=== PATIENT | female | born 1975 | race Caucasian/White ===

== ENCOUNTER 2020-03-10 20:35 | Emergency (ER) | payer OTHER, SELFPAY ==
[2020-03-10 20:38] VITALS: BP 138/76; PULSE 87; RESP 20; TEMP 36.6; O2SAT 100
--- NOTE | 2020-03-10 22:26 | ED.SKABFB ---
HPI - Skin/Abscess/Foreign Bdy General Chief complaint: Skin/Abscess/Foreign Body Stated complaint: possible bug in ear Time Seen by Provider: 03/10/20 20:56 Source: patient Mode of arrival: ambulatory Limitations: no limitations History of Present Illness HPI narrative: This is a 44 year old female that presents to the ER for possible bug in her ear. Reports 2 days ago she was outside and thought that she felt a bug fly into her ear. Reports since she had had pain and feels like she hears a crackling noise. Also reports sore throat that started today. Denies fever, drainage from the ear, or difficulty swallowing. Related Data Home Medications Medication Instructions Recorded Confirmed No Home Medications 09/08/19 09/08/19 Allergies Allergy/AdvReac Type Severity Reaction Status Date / Time No Known Allergies Allergy Verified 03/10/20 20:41 Review of Systems Review of Systems: Narrative: CONSTITUTIONAL: Denies fever ENT: Reports sore throat, and otalgia. All systems reviewed & are unremarkable except as noted in HPI and below PMFSH Past Medical History Medical History (Updated 03/10/20 @ 23:19 by Taina Hilton PA-C) History of hypothyroidism Family History Family History (Updated 06/14/17 @ 09:14 by DOCTOR UNKNOWN) Father Diabetes mellitus Hypertension Family history of chronic obstructive pulmonary disease Social History Social History Smoking status: Never smoker Alcohol intake: current Exam Narrative: Exam Narrative: GENERAL: Well-appearing, well-nourished, and in no acute distress. HEAD: Normocephalic, atraumatic. EYES: EOMI. ENT: Nares clear, no rhinorrhea or epistaxis. Mucous membranes moist. Oropharynx without tonsillar hypertrophy, exudate or other lesions. Bilateral external auditory canals are normal. No foreign bodies noted. Bilateral TMs pearly garay non-bulging EXTREMITIES: Normal range of motion. No edema. SKIN: Warm, dry, no rash. NEURO: No focal deficits. Alert and oriented x3. PSYCH: Normal mood and affect Course Vital Signs Vital signs: Vital Signs Temperature 97.9 F 03/10/20 20:38 Pulse Rate 87 03/10/20 20:38 Respiratory Rate 20 03/10/20 20:38 Blood Pressure 138/76 03/10/20 20:38 Pulse Oximetry 100 03/10/20 20:38 Temperature 97.9 F 03/10/20 20:38 Pulse Rate 87 03/10/20 20:38 Respiratory Rate 20 03/10/20 20:38 Blood Pressure 138/76 03/10/20 20:38 Pulse Oximetry 100 03/10/20 20:38 MDM - Skin/Abscess/Foreign Bdy MDM Narrative Medical decision making narrative: Patient presents to the emergency department for possible bug in her ear. No foreign body noted in the ear. The external auditory canal and TM are normal. Patient also reports a sore throat. Strep screen is negative. Patient was instructed on care of viral pharyngitis. Patient is to follow-up with her primary care doctor Lab Data Attestation: I reviewed the patient's lab results. Labs: Strep Screen Presumptive Negative *(Reference Range: Negative)* Critical Care Time Critical Care Time Critical Care Time: No Discharge Plan Discharge Clinical Impression: Pharyngitis Qualifiers: Pharyngitis/tonsillitis etiology: unspecified etiology Qualified Code(s): J02.9 - Acute pharyngitis, unspecified Patient Disposition: Home, Self-Care Condition: Stable Instructions: Pharyngitis (ED) Additional Instructions: Return to the emergency department if you experience fever, drainage from your ear, difficulty swallowing, or any other symptoms that are concerning to you Tylenol or ibuprofen as needed for pain. Chloraseptic spray or lozenges as needed for sore throat Follow-up with your primary care doctor Prescriptions: No Action No Home Medications RF: 0 cyclobenzaprine 10 mg tablet 10 mg PO TID PRN (Reason: muscle spasm) Qty: 20 RF: 0 Follow-up/Referrals: UNKNOWN,DOCTOR [Primary Care Provider]
== END 2020-03-10 23:37 | disposition home or self-care (01) ==
PROVIDERS: Emergency Provider Emergency Medicine; PCP Physician Assistant
DX: J02.9 Acute pharyngitis, unspecified (principal)
CPT/HCPCS: 87081; 87880; 99283

== ENCOUNTER 2020-03-17 15:33 | Emergency (ER) | payer OTHER, SELFPAY ==
[2020-03-17 15:47] VITALS: BP 150/88; PULSE 81; RESP 16; TEMP 37.1; O2SAT 100
--- NOTE | 2020-03-17 15:49 | ED.EAR ---
HPI - Ear Problem General Chief complaint: Ear Stated complaint: insect in ear Time Seen by Provider: 03/17/20 15:49 Source: patient and RN notes reviewed History of Present Illness HPI Narrative: Patient is a 44-year-old female who presents the urgent care with complaints of a possible bug in the left ear. Patient was seen in the emergency room on the and it was noted that there was no foreign body in the ear. They also did a strep swab on the patient, which was negative. Patient then called her PCP and was placed on Augmentin last Tuesday. Patient spoke to her PCP again today explaining that the pain was still there, and has mild radiation down the neck, and she was suggested to follow-up at the urgent care. Patient denies putting anything in the ear. Denies of any fever, nausea, vomiting. No other acute complaints. No acute distress noted. Patient aware of the plan of care. Related Data Home Medications Medication Instructions Recorded Confirmed levothyroxine 175 mcg PO DAILY 03/17/20 03/17/20 Allergies Allergy/AdvReac Type Severity Reaction Status Date / Time ethinyl estradiol Allergy Rash Verified 03/17/20 15:51 [From Herber (28)] levonorgestrel Allergy Rash Verified 03/17/20 15:51 [From Herber (28)] Review of Systems Review of Systems: Narrative: CONSTITUTIONAL: Denies fever, chills, or sweats. EYES: Denies visual changes, redness, or discharge. ENT: Reports of left ear pain radiating to the neck and throat; reports of possible foreign body to the left ear CARDIOVASCULAR: Denies chest pain, palpitations, or edema. RESPIRATORY: Denies cough or dyspnea. GASTROINTESTINAL: Denies abdominal pain, nausea, vomiting, or diarrhea. GENITOURINARY: Denies dysuria or hematuria. SKIN: Denies rash or itching. MUSCULOSKELETAL: Denies back pain, joint pain, or myalgia. NEUROLOGIC: Denies headache, numbness, or weakness. All other systems reviewed are negative, except as documented in HPI. [facility] Past Medical History Medical History (Updated 03/17/20 @ 15:58 by CLAUDIA Chery) History of hypothyroidism Family History Family History (Updated 06/14/17 @ 09:14 by DOCTOR UNKNOWN) Father Diabetes mellitus Hypertension Family history of chronic obstructive pulmonary disease Social History Social History Smoking status: Never smoker Alcohol intake: current Comments At the time of my signature, I reviewed and agree with the nursing past medical, surgical, social, and family history. There is no relevant family history pertinent to the patient complaint. Exam Narrative: Exam Narrative: GENERAL: This is a well-nourished, well-developed patient, in no apparent distress. HEAD: normocephalic, atraumatic. EYES: PERRL. Sclera clear/white. Vision is grossly intact. EARS: External ears normal, auditory canals clear and without drainage, TMs normal without perforation. Mild fluid noted behind the left TM without otitis. Hearing grossly intact. NOSE: External nose normal with no obvious nasal discharge, nares without redness, no rhinorrhea. THROAT: Mucous membranes moist, posterior pharynx clear. NECK: Neck supple, non-tender without lymphadenopathy, masses or thyromegaly. No palpable nodules or goiter SKIN: warm, intact with no suspicious lesions or rash, good texture and turgor. NEURO: awake, alert, and oriented to person, place and time. There were no obvious focal neurologic abnormalities. EXTREMITIES: No clubbing, cyanosis, or edema. Course Vital Signs Vital signs: Vital Signs Temperature 98.8 F 03/17/20 15:47 Pulse Rate 81 03/17/20 15:47 Respiratory Rate 16 03/17/20 15:47 Blood Pressure 150/88 H 03/17/20 15:47 Pulse Oximetry 100 03/17/20 15:47 Temperature 98.8 F 03/17/20 15:47 Pulse Rate 81 03/17/20 15:47 Respiratory Rate 16 03/17/20 15:47 Blood Pressure 150/88 H 03/17/20 15:47 Pulse Oximetry 100 03/17/20 15:47 Reviewed?patient is informed lonny
== END 2020-03-17 16:02 | disposition home or self-care (01) ==
PROVIDERS: Emergency Provider Nurse Practitioner Family; PCP Family Medicine
DX: H92.02 Otalgia, left ear (principal)
CPT/HCPCS: 99211; G0463

== ENCOUNTER 2021-02-16 17:11 | Emergency (ER) | payer OTHER, SELFPAY ==
[2021-02-16 17:17] VITALS: BP 134/81; PULSE 85; RESP 16; TEMP 36.3; O2SAT 100
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
== END 2021-02-16 17:44 | disposition home or self-care (01) ==
PROVIDERS: Emergency Provider Nurse Practitioner; PCP Family Medicine
DX: N30.01 Acute cystitis with hematuria (principal); E03.9 Hypothyroidism, unspecified
CPT/HCPCS: 81003; 87077; 87086; 87088; 87186; 99213; G0463

== ENCOUNTER 2021-06-11 12:00 | Emergency (ER) | payer OTHER, SELFPAY ==
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
--- NOTE | ~2021-06-11 | XR_ITS ---
EXAMINATION: XR wrist RT min 3V DATE: 06/11/2021 12:59 INDICATION: Radial sided right wrist pain. TECHNIQUE: 4 views of right wrist were obtained. COMPARISON: None. FINDINGS: Bone alignment is normal. No fracture. There is a 9 mm nonaggressive lytic lesion in scapho id. There is mild osteoarthritis of first metacarpophalangeal joint. IMPRESSION: 1. Mild osteoarthritis of first metacarpophalangeal joint. 2. 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 Reviewed, dictated and finalized at location A.
--- NOTE | ~2021-06-11 | XR_ITS ---
EXAMINATION: XR cervical spine 4-5V DATE: 06/11/2021 13:00 INDICATION: Neck injury. Neck pain radiating to the right arm. TECHNIQUE: 6 views of cervical spine were obtained. COMPARISON: None. FINDINGS: There is 6 degrees dextrocurvature of cervicothoracic spine. Vertebral body heights and int ervertebral disc heights are normal. The facet joints and uncovertebral joints are unremarkable. No c entral canal stenosis or prevertebral soft tissue swelling. IMPRESSION: 1. No fracture. Reviewed, dictated and finalized at location A. IMPRESSION: 1. No fracture.
[2021-06-11 12:13] VITALS: BP 148/87; PULSE 82; RESP 20; TEMP 37; O2SAT 100
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
== END 2021-06-11 14:39 | disposition home or self-care (01) ==
PROVIDERS: Emergency Provider Nurse Practitioner; PCP Family Medicine
DX: S63.501A Unspecified sprain of right wrist, initial encounter (principal); S66.911A Strain of unspecified muscle, fascia and tendon at wrist and hand level, right hand, initial encounter; S13.9XXA Sprain of joints and ligaments of unspecified parts of neck, initial encounter; Y04.0XXA Assault by unarmed brawl or fight, initial encounter; E03.9 Hypothyroidism, unspecified
CPT/HCPCS: 72050; 73110; 73130; 99214; G0463

== ENCOUNTER 2021-08-31 16:42 | Emergency (ER) | payer OTHER, SELFPAY ==
[2021-08-31 16:51] VITALS: BP 154/85; PULSE 76; RESP 16; TEMP 36.8; O2SAT 99
--- NOTE | 2021-08-31 18:30 | ED.GENADULT ---
HPI - General Adult General Chief complaint: Unspecified Stated complaint: Ear Pain,Finger pain Time Seen by Provider: 08/31/21 18:31 Source: patient, RN notes reviewed and old records reviewed Mode of arrival: ambulatory Limitations: no limitations History of Present Illness HPI narrative: 46 year old female who [facility] with complaints of left ear pain and pressure, cough and sore throat and nasal drainage for the past several days. She also states complaint of some tenderness to her right 4th finger medial dorsal aspect where she thinks she may of gotten something in it while renovating at home because area remains tender. Patient has callus area noted to 4th dorsal medial finger area with no redness noted. Patient voices some tenderness to area on finger. Patient states that she has been taking some Ibuprofen for her symptoms. Related Data Home Medications Medication Instructions Recorded Confirmed etonogestrel-ethinyl estradiol 1 vag ring VAGINAL WEEKLY 08/31/21 08/31/21 [EluRyng] fluoxetine 40 mg PO DAILY 08/31/21 08/31/21 fluticasone propionate 2 spray INTRANASAL DAILY 08/31/21 08/31/21 levothyroxine 150 mcg PO DAILY 08/31/21 08/31/21 montelukast 10 mg PO DAILY 08/31/21 08/31/21 trazodone 50 mg PO DAILY 08/31/21 08/31/21 Allergies Allergy/AdvReac Type Severity Reaction Status Date / Time ethinyl estradiol Allergy Rash Verified 08/31/21 18:35 [From Herber (28)] levonorgestrel Allergy Rash Verified 08/31/21 18:35 [From Herber (28)] Review of Systems Review of Systems: CONSTITUTIONAL: Denies fever, chills, or sweats. EYES: Denies visual changes, redness, or discharge. ENT:Positive for rhinorrhea, congestion, sore throat, left otalgia. CARDIOVASCULAR: Denies chest pain, palpitations, or edema. RESPIRATORY: Positive cough denies dyspnea. GASTROINTESTINAL: Denies abdominal pain, nausea, vomiting, or diarrhea. GENITOURINARY: Denies dysuria or hematuria. SKIN: Denies rash or itching.tender callus area o right dorsal medial 4th finger MUSCULOSKELETAL: Denies back pain, joint pain, or myalgia. NEUROLOGIC: Denies headache, numbness, or weakness. PSYCHIATRIC: Denies anxiety or depression. All systems reviewed & are unremarkable except as noted in HPI and below PMFSH Past Medical History Medical History (Updated 09/02/21 @ 20:14 by Winifred Wakefield NP) Depression History of hypothyroidism PCOS (polycystic ovarian syndrome) Surgical History Surgical History (Updated 09/02/21 @ 17:24 by Winifred Wakefield NP) History of cholecystectomy Family History Family History (Updated 09/02/21 @ 20:09 by Winifred Wakefield NP) Father Diabetes mellitus Hypertension Family history of chronic obstructive pulmonary disease Aortic valve disorder Mother Aortic valve disorder Hypertension Social History Social History (Updated 09/02/21 @ 20:01 by Winifred Wakefield NP) Smoking status: Never smoker Alcohol intake: current Substance use: never Living arrangements: with family Gender identity (if verbalized by the patient): Female Comments At time of signature, agree with nursing past medical, surgical, social and family history. There is no relevant family history pertinent to the presenting complaint Exam Narrative: GENERAL: Well-appearing, well-nourished, and in no acute distress. HEAD: Normocephalic, atraumatic. EYES: PERRLA and EOMI. ENT: Nares patent,clear rhinorrhea no epistaxis. Mucous membranes moist.Right TM normal wit good light reflex, left TM red and bulging no drainage noted. throat with mild redness, no exudates or lesions no tonsil swelling post nasal drainage noted. NECK: Supple.no lymphadenopathy CHEST: Clear to auscultation. No respiratory distress.SAO2 99% on room air, no dyspnea or tachypnea noted. HEART: Regular rate and rhythm. No murmur heard. Normal peripheral pulses. ABDOMEN: Soft, nontender, nondistended, normal active bowel sounds. EXTREMITIES: Normal
== END 2021-08-31 18:55 | disposition home or self-care (01) ==
PROVIDERS: Emergency Provider Registered Nurse
DX: H65.02 Acute serous otitis media, left ear (principal); L84 Corns and callosities; E03.9 Hypothyroidism, unspecified; E28.2 Polycystic ovarian syndrome; F32.A Depression, unspecified
CPT/HCPCS: 99213; G0463

== ENCOUNTER 2021-09-15 11:06 | Emergency (ER) | payer OTHER, SELFPAY ==
[2021-09-15 11:54] VITALS: BP 149/81; PULSE 71; RESP 16; TEMP 36.9; O2SAT 98
--- NOTE | 2021-09-15 12:20 | PC.NURSE ---
PT LEAVING ED TO GO TO URGENT [facility]ARE [facility]. AMBULATORY WITH STEADY GAIT.
== END 2021-09-16 01:51 | disposition left against medical advice (07) ==
DX: R51.9 Headache, unspecified (principal)
CPT/HCPCS: 99199

== ENCOUNTER → 2021-11-04 01:21 | Outpatient (CLI) | payer OTHER, SELFPAY ==
[2021-11-04 21:10] LABS: SARS-CoV-2 RNA PCR Negative
== END ==
PROVIDERS: Visit Provider Internal Medicine Gastroenterology
DX: B34.9 Viral infection, unspecified (principal); Z20.822 Contact with and (suspected) exposure to COVID-19
CPT/HCPCS: C9803; U0003; U0005

== ENCOUNTER 2021-11-16 10:36 | Outpatient (CLI) | payer OTHER, SELFPAY ==
--- NOTE | ~2021-11-16 | MR_ITS ---
EXAMINATION: MR shoulder RT wo con DATE: 11/16/2021 11:54 INDICATION: Right shoulder pain. TECHNIQUE: Magnetic resonance imaging (MRI) of the right shoulder was performed without intravenous c ontrast. Sequences included axial PD-weighted FS FSE, coronal oblique PD-weighted FS FSE and T2-weigh lucila FS FSE, and sagittal oblique T2-weighted FS FSE and T1-weighted FSE. COMPARISON: None. FINDINGS: Coracoacromial arch: The acromion undersurface is flat in morphology (type I). There is moderate acromioclavicular joint o steoarthritis including inferiorly directed osteophytes. There is mild subacromial/subdeltoid bursiti s. Rotator cuff: There is moderate tendinopathy of the conjoined portion of supraspinatus and infraspinatus tendons. T eres minor tendon is normal. There is mild subscapularis tendinopathy. No tear. Biceps tendon and glenoid labrum: Biceps tendon is in bicipital groove. There is mild intra-articular biceps tendinopathy. There is a t ear of the glenoid labrum to from 11:00 to 12:00 (SLAP tear) with 4 mm paralabral cyst. Fluid: There is a small glenohumeral joint effusion. Bones/cartilage: Glenoid cartilage is normal. Humeral head cartilage is normal. IMPRESSION: 1. Moderate rotator cuff tendinopathy. No tear. 2. SLAP tear with 4 mm paralabral cyst. 3. Moderate acromioclavicular joint osteoarthritis. 4. Small glenohumeral joint effusion. 5. Mild intra-articular biceps tendinopathy. Reviewed, dictated and finalized at location A. [facility]
== END 2021-11-16 10:37 | disposition home or self-care (01) ==
LOC: ANHIMG 10:41
PROVIDERS: PCP Physician Assistant; Visit Provider Physician Assistant Surgical
DX: M25.511 Pain in right shoulder (principal); M76.891 Other specified enthesopathies of right lower limb, excluding foot; S43.431A Superior glenoid labrum lesion of right shoulder, initial encounter; M19.011 Primary osteoarthritis, right shoulder; M25.411 Effusion, right shoulder
CPT/HCPCS: 73221

== ENCOUNTER 2024-02-06 17:15 | Emergency (ER) | payer OTHER, SELFPAY ==
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
[2024-02-06 17:52] VITALS: BP 146/87; PULSE 71; RESP 18; TEMP 36.4; O2SAT 99
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
[2024-02-06] MEDS: ACETAMINOPHEN 500 MG TABLET 1000 MG PO (20:15)
[2024-02-06] MEDS: ONDANSETRON HCL ODT 4 MG TABLET PO (20:15)
[2024-02-06 20:23] VITALS: BP 138/86; PULSE 71; RESP 15; O2SAT 99
== END 2024-02-06 21:09 | disposition home or self-care (01) ==
PROVIDERS: Emergency Provider Emergency Medicine; PCP Physician Assistant
DX: S16.1XXA Strain of muscle, fascia and tendon at neck level, initial encounter (principal); F32.A Depression, unspecified; E03.9 Hypothyroidism, unspecified; E28.2 Polycystic ovarian syndrome; V59.50XA Passenger in pick-up truck or van injured in collision with unspecified motor vehicles in traffic accident, initial encounter
CPT/HCPCS: 70450; 73030; 99284; A9270

== ENCOUNTER 2024-02-08 17:14 | Emergency (ER) | payer OTHER, SELFPAY ==
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
[2024-02-08 17:16] VITALS: BP 136/74; PULSE 104; RESP 16; TEMP 36.4; O2SAT 98
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
[2024-02-08] MEDS: ACETAMINOPHEN 500 MG TABLET 1000 MG PO (22:52)
[2024-02-08] MEDS: diphenhydrAMINE HCl INJ 50 MG/ML VIAL 25 MG IV PUSH (22:54)
[2024-02-08] MEDS: PROCHLORPERAZINE EDISYLATE 10 MG/2 ML VIAL IV PUSH (22:54)
[2024-02-08 23:03] LABS: Hemoglobin 14.8 g/dL (12.0-15.0); Immature Platelet Fraction Pct 2.6 % (0.9-11.2); Mean Corpuscular HGB Conc 34.4 g/dl (32-36); Mean Corpuscular Hemoglobin 31.4 pg (26-34); Mean Corpuscular Volume 91.3 fl (80-100); Mean Platelet Volume 9.6 fl (7.4-10.4); Platelet Count Result 240 k/mm3 (150-375); Red Blood Count 4.71 M/mm3 (4.2-5.4); Red Cell Distribution Width 12.8 % (11.5-14.5); White Blood Count 11.8 K/mm3 (4.5-10.0)
[2024-02-08 23:14] LABS: Anion Gap 9 mmol/L (4-12); Blood Urea Nitrogen 18 mg/dL (7-17); Calcium 9.1 mg/dL (8.4-10.2); Carbon Dioxide 25 mmol/L (22-30); Chloride 103 mmol/L (98-107); Estimated CRCL calculation 93 ml/min; Estimated Glomerular Filt Rate > 60; Glucose 136 mg/dL (65-110); Potassium 4.5 mmol/L (3.4-5.0); Sodium 137 mmol/L (137-145)
[2024-02-09 00:04] LABS: Band Neutrophils Percent 7 % (0-6); Lymphocytes Absolute Manual 0.11 K/mm3 (1.1-4.5); Monocytes Absolute Manual 0.11 K/mm3 (0.1-0.90); Monocytes Percent Manual 1 % (3-9); Neutrophils Absolute Manual 11.56 K/mm3 (1.7-7.2); Neutrophils Percent Manual 91 % (46-73); Platelet Estimate Adequate (Adequate); Schistocytes None Seen; Total Cells Counted 100
--- NOTE | 2024-02-09 00:11 | PC.NURSE ---
Pt had a bowel movement she couldnt control on her clothing and her bedding. Pt given blue scrub pants and linens changed.
--- NOTE | 2024-02-09 00:11 | PC.NURSE ---
Post void residual 115ml. Pt stated I dont feel like I have to pee. I have no urge at all.
[2024-02-09] MEDS: SODIUM CHLORIDE 0.9% IV 1,000 ML 999 ML IV CONT (00:18)
[2024-02-09 02:35] LABS: Appearance Urine Clear (Clear); Bacteria Urine None Seen /hpf; Bilirubin Urine Negative (Negative); Blood Urine Negative (Negative); Color Urine Yellow (Yellow); Glucose Urine UA Negative (Negative); Ketones Urine Negative (Negative); Leukocyte Esterase Ur Negative LEU/UL (Negative); Need Manual Microscopic Reviewed; Nitrate Urine Negative (Negative); Protein Urine Trace mg/dL (Negative); Squamous Epithelial Cell Urine Occasional /hpf (Few); Urobilinogen Urine 0.2 mg/dL (<2.0); WBC Urine 0-5 /hpf (0-3); pH Urine 5.5 (5.0-9.0)
[2024-02-09 02:45] LABS: Specific Grav Ur 1.036 (1.001-1.035)
[2024-02-09 02:46] LABS: Add Urine Microscopic? YES
[2024-02-09 03:28] VITALS: BP 148/76; PULSE 76; RESP 16; O2SAT 98
== END 2024-02-09 03:29 | disposition home or self-care (01) ==
PROVIDERS: Emergency Provider Physician Assistant; PCP Physician Assistant
DX: S06.0X0A Concussion without loss of consciousness, initial encounter (principal); S16.1XXA Strain of muscle, fascia and tendon at neck level, initial encounter; S39.012A Strain of muscle, fascia and tendon of lower back, initial encounter; E03.9 Hypothyroidism, unspecified; E28.2 Polycystic ovarian syndrome; F32.A Depression, unspecified; Z90.49 Acquired absence of other specified parts of digestive tract; M47.816 Spondylosis without myelopathy or radiculopathy, lumbar region; V49.50XA Passenger injured in collision with unspecified motor vehicles in traffic accident, initial encounter
CPT/HCPCS: 36415; 70450; 71046; 72131; 80048; 81001; 81025; 85025; 85055; 96361; 96374; 96375; 99284; A9270; J0780; J1200; J7030